=== PATIENT | female | born 1980 | race Two or more races ===

== ENCOUNTER 2016-07-09 17:20 | Emergency (ER) | payer OTHER ==
--- NOTE | ~2016-07-09 | CR263 ---
[facility] A Service of [facility] RADIOLOGY TEXT RESULTS PATIENT: Alonso HERNANDEZ SE LOCATION: CFTX : 82 UNIT #: [id number] AGE: [address]: Sherri Meeks SEX: F ORDER DR: [id number] [facility] [address] [facility]. [place], [place] [address] [id number] E MR#: [id number] #: [id number] NAME: Alonso HERNANDEZ SE : 1980 SEX: F STUDY DATE/TIME: 07/09/2016 18:16 UNIT: CFTX ROOM: STUDY DESCRIPTION: CR Toe 2 Views Great Rt Attending Physician: Sherri Meeks Pa-C Ordering Physician: Sherri Meeks Pa-C Primary Care Physician: [facility] MEDICAL IMAGING REPORT This report is preliminary unless electronic signature is present EXAM Right great toe 3 views HISTORY Crush injury and toe pain today. Bruising. FINDINGS Three views of the right great toe demonstrate comminuted fracture at the base of the distal phalanx, including a transverse component extending through the base and a longitudinal component extending through the lateral margin of the base of the distal phalanx into the lateral margin of the IP joint. Less than 10 degrees plantar angulation of the dominant fracture apex. No dislocation. Dictated by... Emerson Jenkins M.D. THIS IS AN ELECTRONICALLY VERIFIED REPORT Emerson Jenkins M.D. at 07/09/2016 11:14 PM MARYCARMEN/karen TD: 07/09/2016 22:48 JOB #: [id number] MEDICAL IMAGING REPORT Page 1 of 1 COPY
[~2016-07-09 17:20] MED LIST: PHENERGAN25 MG PO; ZANTAC PO; ZOFRAN PO
== END 2016-07-09 19:17 | disposition home or self-care (01) ==
LOC: CFTX 17:20 → CED 17:20 → CFTX 17:57
DX: S92.421A Displaced fracture of distal phalanx of right great toe, initial encounter for closed fracture (principal); E11.9 Type 2 diabetes mellitus without complications; I10 Essential (primary) hypertension; W20.8XXA Other cause of strike by thrown, projected or falling object, initial encounter
CPT/HCPCS: 29550; 73660; 99283